=== PATIENT | male | born 1955 | race Caucasian/White ===

== ENCOUNTER 2022-12-29 03:17 | Emergency (ER) | payer MEDICAID ==
[~2022-12-29] VITALS: Ht 190.5 cm; Wt 97.5 kg
[2022-12-29 03:30] VITALS: BP 180/114
[2022-12-29] MEDS ORDERED: ENAL20TA18 PO (04:52)
[2022-12-29] MEDS ORDERED: HYDR-4009 MT (04:52)
== END 2022-12-29 05:15 | disposition home or self-care (01) ==
LOC: ER 03:17
DX: I10 Essential (primary) hypertension (principal); Z76.0 Encounter for issue of repeat prescription
CPT/HCPCS: 99281